=== PATIENT | female | born 1975 | race Caucasian/White ===

== ENCOUNTER 2018-09-29 15:18 | Outpatient (CLI) | payer MEDICARE, MEDICAID ==
--- NOTE | 2018-09-29 16:48 | MRI ---
MR OF THE LEFT WRIST WITHOUT IV CONTRAST: 09/29/18 INDICATION; Left wrist pain for six months with history of carpal tunnel. COMPARISON: None. FINDINGS: The transverse carpal ligament remains intact. The median nerve is slightly prominent with increased T2 signal just proximal to the transverse carpal band suspicious for changes of carpal tunnel syndrom e. SCR and SCU tendons appear within normal limits. There is a small volar radial ganglion measuring 5 mm protruding from the radiocarpal joint. Scapholunate and lunatotriquetral ligaments are intact. T FC appears intact. There is some mild fluid seen within the first dorsal compartment. There is mild t endinosis of the ECU tendon. Remaining extensor tendons appear within normal limits. Small amount of fluid is also present within the second dorsal compartment. Bone marrow signal intensity appears with in normal limits. The patient holds the wrist in slight dorsiflexion slightly limiting the exam. Visu alized extrinsic ligaments appear intact. IMPRESSION: 1. Slight prominence of the median nerve with some increased T2 signal can be seen with carpal t unnel syndrome. The transverse carpal ligament remains intact. 2. Mild ECU tendinosis. 3. Mild amount of fluid within the second and first dorsal extensor compartment suspicious for m ild tenosynovitis. POS: CET
== END 2018-09-29 15:19 | disposition home or self-care (01) ==
LOC: BICMRI 15:18
PROVIDERS: ATTEND Orthopaedic Surgery Hand Surgery
DX: M87.00 Idiopathic aseptic necrosis of unspecified bone (principal); G56.02 Carpal tunnel syndrome, left upper limb; M77.9 Enthesopathy, unspecified

== ENCOUNTER 2018-10-30 00:09 | Outpatient (CLI) | payer MEDICARE, MEDICAID ==
[2018-10-30 09:01] LABS: BHCG - Serum Negative (NEGATIVE); Pregs Control Background? CLEAR/WHITE (CLR/WHITE); Pregs Control Bar Appear? YES (CONTROL BAR)
[2018-10-30 09:19] LABS: #Basophils 0.1 thou/uL (0.0-0.2); #Eosinphils 0.2 thou/uL (0.0-0.7); #Lymphocytes 3.7 thou/uL (1.20-3.40); #Monocytes 0.7 thou/uL (0.11-0.59); #Neutrophils 7.9 thou/uL (1.40-6.50); %Basophils 0.7 % (0.0-1.0); %Eosinophils 1.8 % (0.0-10.0); %Lymphocytes 29.5 % (21.0-51.0); %Monocytes 5.6 % (0.0-10.0); %Neutrophils 62.4 % (42.0-75.0); Hemoglobin 11.4 g/dL (12.0-16.0); Mean Corpuscular HGB CONC 31.1 g/dL (32.0-36.0); Mean Corpuscular Hemoglobin 27.4 pg (27.0-31.0); Mean Corpuscular Volume 87.9 fL (78.0-98.0); Mean Platelet Volume 6.1 fL (7.4-10.4); Platelet Count 460 thou/uL (130-400); RBC Distribution Width 13.5 % (11.5-14.5); Red Blood Cell (RBC) Count 4.17 mill/uL (4.20-5.40); White Blood Cell (WBC) Count 12.6 thou/uL (4.8-10.8)
== END 2018-10-30 00:10 | disposition home or self-care (01) ==
LOC: LABBT 00:09
PROVIDERS: ATTEND Orthopaedic Surgery Hand Surgery
DX: Z01.812 Encounter for preprocedural laboratory examination (principal); G56.02 Carpal tunnel syndrome, left upper limb
CPT/HCPCS: 84703; 85025; 85652

== ENCOUNTER 2018-10-31 05:43 | Day surgery (SDC) | payer MEDICARE, MEDICAID ==
[2018-10-30 08:19] VITALS: BMI 42.3
[2018-10-31] MEDS ORDERED: Fentanyl 100 MCG/2 ML VIAL ONE (06:31)
[2018-10-31] MEDS ORDERED: Midazolam HCl 2 mg/2 ml Vial ONE (06:31)
[2018-10-31] MEDS ORDERED: Bacitracin Zinc Ointment 30 gm TUBE ONE (06:49)
[2018-10-31] MEDS ORDERED: Bupivacaine PF 0.5% 30 ML VIAL ONE (06:49)
[2018-10-31] MEDS ORDERED: Betamet Acet/Betamet Na Ph 30 MG/5 ML VIAL ONE (06:49)
[2018-10-31] MEDS ORDERED: Albuterol Sulfate 2.5 mg/3 ml Neb ONE (09:15)
--- NOTE | 2018-10-31 11:16 | OP ---
DATE OF PROCEDURE: 10/31/2018 PREOPERATIVE DIAGNOSIS: Left carpal tunnel syndrome. POSTOPERATIVE DIAGNOSIS: Left carpal tunnel syndrome. FINDINGS: 1. Very tight transverse carpal ligament. 2. Slightly edema, but edematous and compressed separately motor branch without nerve tumor. PROCEDURES PERFORMED: 1. Carpal tunnel release. 2. Celestone injection drip technique. INDICATIONS: Failed conservative treatment, positive EMG on exam. ANESTHESIA: General LMA technique augmented by 15 mL of 0.5% Marcaine block. DESCRIPTION OF PROCEDURE: After successful general anesthesia as listed above, limb was prepped and draped. Time-out was done appropriately. Identified the site, side and the consent is matching. We exsanguinated the limb and elevated the tourniquet to 250 mmHg pressure. Outlined incision in line with the ring finger from medial lateral, as far distal as Roblero's cardinal line for approximately 5 mm distal to the volar wrist flexion crease. We carried this incision through skin and subcutaneous tissue with a 15 blade knife, then exchanged [place] blade to dissect subcutaneously, identified the transverse carpal ligament. We protected the nerve branches distal and proximal. We then found a tight transverse carpal ligament from the midportion distally released under direct visualization with a [place] blade and for the midportion proximal, released the transverse carpal ligament under direct visualization with combination of [place] blade and tenotomy scissors. There was a slightly edematous and thickened area around the motor branch, but there was no primary nerve tumor seen. We placed 3 mL Celestone drip technique over the median nerve in the area, where there was some small amount of stippling, but no hourglass formation as yet. We then released the tourniquet, obtained hemostasis, closed the incision with interrupted 4-0 nylon mattress pattern and placed the patient in a bulky dressing with no splint. She left the operating room without evidence of anesthetic or operative complication. Job ID: [id number]
[2018-10-31] MEDS ORDERED: PROPOFOL 200 MG/20 ML VIAL ONE (15:05)
[2018-10-31] MEDS ORDERED: Ondansetron PF 4 MG/2 ML Vial ONE (15:05)
[2018-10-31] MEDS ORDERED: Lidocaine 1% PF 5 ML VIAL ONE (15:05)
[2018-10-31] MEDS ORDERED: Metoclopramide HCl 10 MG/2 ML VIAL ONE (15:05)
== END 2018-10-31 09:38 | disposition home or self-care (01) ==
LOC: SDC 05:43
PROVIDERS: ATTEND Orthopaedic Surgery Hand Surgery
PROC: 01N50ZZ Release Median Nerve, Open Approach (ICD-10-PCS; principal; 2018-10-31)
DX: G56.03 Carpal tunnel syndrome, bilateral upper limbs (principal); F31.81 Bipolar II disorder; E11.9 Type 2 diabetes mellitus without complications; J45.909 Unspecified asthma, uncomplicated; G43.909 Migraine, unspecified, not intractable, without status migrainosus; M19.90 Unspecified osteoarthritis, unspecified site; Z85.41 Personal history of malignant neoplasm of cervix uteri; Z88.6 Allergy status to analgesic agent; Z88.5 Allergy status to narcotic agent; Z79.84 Long term (current) use of oral hypoglycemic drugs; Z79.51 Long term (current) use of inhaled steroids; Z79.899 Other long term (current) drug therapy; Z98.890 Other specified postprocedural states
CPT/HCPCS: J0702; J2001; J2250; J2405; J2704; J2765; J3010; J7611; S0020

== ENCOUNTER 2019-01-01 13:25 | Day surgery (SDC) | payer MEDICARE, MEDICAID ==
[2018-12-28 17:47] VITALS: BMI 40.7
[~2019-01-01 13:25] MED LIST: Lidocaine 1% PF 5 ML VIAL ONE; PROPOFOL 200 MG/20 ML VIAL ONE
[2019-01-01 14:30] LABS: #Basophils 0.1 thou/uL (0.0-0.2); #Eosinphils 0.2 thou/uL (0.0-0.7); #Monocytes 0.3 thou/uL (0.11-0.59); #Neutrophils 5.1 thou/uL (1.40-6.50); %Basophils 1.1 % (0.0-1.0); %Eosinophils 2.7 % (0.0-10.0); %Lymphocytes 25.6 % (21.0-51.0); %Monocytes 4.5 % (0.0-10.0); %Neutrophils 66.1 % (42.0-75.0); Mean Corpuscular HGB CONC 32.5 g/dL (32.0-36.0); Mean Corpuscular Hemoglobin 28.2 pg (27.0-31.0); Mean Platelet Volume 6.1 fL (7.4-10.4); Platelet Count 498 thou/uL (130-400); RBC Distribution Width 12.8 % (11.5-14.5); Red Blood Cell (RBC) Count 4.24 mill/uL (4.20-5.40); White Blood Cell (WBC) Count 7.7 thou/uL (4.8-10.8)
[2019-01-01] MEDS ORDERED: Betamet Acet/Betamet Na Ph 30 MG/5 ML VIAL ONE (14:35)
[2019-01-01] MEDS ORDERED: Bupivacaine PF 0.5% 30 ML VIAL ONE (14:35)
[2019-01-01] MEDS ORDERED: Fentanyl 100 MCG/2 ML VIAL ONE (15:25)
--- NOTE | 2019-01-02 08:57 | OP ---
DATE OF PROCEDURE: 01/01/2019 PREOPERATIVE DIAGNOSIS: Right hand carpal tunnel syndrome. POSTOPERATIVE DIAGNOSIS: Right thumb carpal tunnel syndrome. FINDINGS: Very tight median nerve in the center of the transverse carpal ligament with about 1 cm area stippling, but no true hourglass formation. PROCEDURE PERFORMED: Right carpal tunnel release/median nerve neuroplasty at the wrist. TOURNIQUET TIME: 60 minutes. INJECTABLE: Yes. We injected 3 mL of Celestone steroid, a carpal tunnel injection via drip technique. INDICATIONS FOR PROCEDURE: The patient had failed conservative treatment one, brace, taken medication, had positive exam including [place] and positive EMG nerve conduction velocities. DESCRIPTION OF PROCEDURE: After successful general LMA technique, the limb was prepped and draped. Time-out was done appropriately. We injected the area over the carpal tunnel incision with 8 mL of 0.5% Marcaine with no epinephrine. We then outlined incision in line with the ring finger in the middle of the area between the two emesis, thenar and hypothenar, and extending from [place]o cardinal line to 0.5 mm distal to the volar wrist flexion crease. We then exsanguinated the limb, inflated the tourniquet to 250 mmHg pressure. . We then entered the incision through the glabrous skin, dissected subcutaneous tissue. We visualized the palmaris longus insertion on the transverse carpal ligament. We then made incision in the ulnar 2/3 of the palmaris longus, carried through the ligament complete to visualize the underlying neurovascular structures. We protected the median nerve and then from the midportion of transcarpal ligament distally first we opened it and with combination of [place] blade and tenotomy scissors. Here, we saw the stippling without allograft formation. We then elevated the skin flaps, dissected to visualize the entire transcarpal ligament proximally and released it under direct visualization using the tenotomy scissors and [place] blade. We then placed 3 mL Celestone along the nerve in area with stippling, deflated the tourniquet, and closed the wound with interrupted 4-0 nylon mattress pattern. The patient left the operating room without evidence of anesthetic or operative complication with a soft dressing. Job ID: [id number]
== END 2019-01-01 17:10 | disposition home or self-care (01) ==
LOC: SDC 13:25
PROVIDERS: ATTEND Orthopaedic Surgery Hand Surgery
PROC: 01N50ZZ Release Median Nerve, Open Approach (ICD-10-PCS; principal; 2019-01-01)
DX: G56.03 Carpal tunnel syndrome, bilateral upper limbs (principal); J44.9 Chronic obstructive pulmonary disease, unspecified; K21.9 Gastro-esophageal reflux disease without esophagitis; F31.9 Bipolar disorder, unspecified; G43.909 Migraine, unspecified, not intractable, without status migrainosus; Z79.51 Long term (current) use of inhaled steroids; Z79.84 Long term (current) use of oral hypoglycemic drugs; Z79.899 Other long term (current) drug therapy; Z88.5 Allergy status to narcotic agent; Z88.6 Allergy status to analgesic agent; Z88.8 Allergy status to other drugs, medicaments and biological substances
CPT/HCPCS: 36415; 85025; J0690; J0702; J2001; J2704; J3010; S0020

== ENCOUNTER 2021-10-16 13:59 | Outpatient (CLI) | payer MEDICARE, MEDICAID ==
[2021-10-16 15:44] LABS: Hemoglobin 7.6 g/dL (12.0-15.5); Mean Corpuscular HGB CONC 29.5 g/dL (32.0-36.0); Mean Corpuscular Hemoglobin 24.9 pg (27.0-33.0); Mean Corpuscular Volume 84.6 fl (81.6-98.3); Mean Platelet Volume 9.1 fl (7.4-10.4); Platelet Count 605 10x3/uL (150-450); Red Blood Cell (RBC) Count 3.05 10x6/uL (3.90-5.03); White Blood Cell (WBC) Count 11.6 10x3/uL (3.5-10.5)
[2021-10-16 15:59] LABS: Anion Gap 16 mmol/L (10-20); BUN (Urea Nitrogen) 13 mg/dL (7.0-18.7); Calc. Creatinine Clearance 0 mL/min (70-130); Calcium 9.1 mg/dL (7.8-10.44); Carbon Dioxide 16 mmol/L (22-29); Chloride 108 mmol/L (98-107); Glucose 128 mg/dL (70-105); Potassium 4.3 mmol/L (3.5-5.1); Sodium 136 mmol/L (136-145)
[2021-10-17 00:42] LABS: SARS-CoV-2 PCR by NAA Not Detected (NotDetected)
== END 2021-10-16 14:00 | disposition home or self-care (01) ==
LOC: LABBT 13:59
PROVIDERS: ATTEND Neurological Surgery
DX: Z01.818 Encounter for other preprocedural examination (principal); M43.16 Spondylolisthesis, lumbar region; Z20.822 Contact with and (suspected) exposure to COVID-19
CPT/HCPCS: 80048; 85027; 93005; U0003; U0005; 93010

== ENCOUNTER 2021-10-30 08:58 | Outpatient (CLI) | payer MEDICARE, MEDICAID ==
[2021-10-30 10:01] LABS: Hemoglobin 11.2 g/dL (12.0-15.5); Mean Corpuscular HGB CONC 30.2 g/dL (32.0-36.0); Mean Corpuscular Hemoglobin 24.9 pg (27.0-33.0); Mean Corpuscular Volume 82.4 fl (81.6-98.3); Mean Platelet Volume 8.8 fl (7.4-10.4); Platelet Count 486 10x3/uL (150-450); RBC Distribution Width 15.1 % (11.5-14.5); White Blood Cell (WBC) Count 7.7 10x3/uL (3.5-10.5)
[2021-10-30 10:58] LABS: Anion Gap 12 mmol/L (10-20); BUN (Urea Nitrogen) 11 mg/dL (7.0-18.7); Calc. Creatinine Clearance 0 mL/min (70-130); Calcium 9.5 mg/dL (7.8-10.44); Carbon Dioxide 23 mmol/L (22-29); Chloride 104 mmol/L (98-107); Glucose 115 mg/dL (70-105); Potassium 4.3 mmol/L (3.5-5.1); Sodium 135 mmol/L (136-145)
[2021-10-30 18:26] LABS: SARS-CoV-2 PCR by NAA Not Detected (NotDetected)
== END 2021-10-30 08:59 | disposition home or self-care (01) ==
LOC: LABBT 08:58
PROVIDERS: ATTEND Neurological Surgery
DX: Z01.818 Encounter for other preprocedural examination (principal); M43.16 Spondylolisthesis, lumbar region; Z20.822 Contact with and (suspected) exposure to COVID-19
CPT/HCPCS: 80048; 85027; 93005; U0003; U0005; 93010

== ENCOUNTER 2021-11-04 05:40 | Day surgery (SDC) | payer MEDICARE, MEDICAID ==
[2021-10-12 13:15] VITALS: BMI 42.1
[2021-11-04] MEDS ORDERED: Midazolam HCl 2 mg/2 ml Vial ONE (06:30)
[2021-11-04] MEDS ORDERED: Fentanyl 250 MCG/5 ML VIAL ONE ×2 (06:40→08:47)
[2021-11-04] MEDS ORDERED: Ondansetron PF 4 MG/2 ML Vial ONE ×2 (07:22→11:03)
[2021-11-04] MEDS ORDERED: Rocuronium Bromide 10 MG/ML (10ML VIAL) ONE (07:22)
[2021-11-04] MEDS ORDERED: ePHEDrine 50 MG/ML VIAL ONE ×2 (07:22)
[2021-11-04] MEDS ORDERED: Lidocaine 1% PF 5 ML VIAL ONE (07:22)
[2021-11-04] MEDS ORDERED: GLYCOPYRROLATE/PF 0.2 MG/ML VIAL ONE (07:22)
[2021-11-04] MEDS ORDERED: Dexamethasone 20 MG/5 ML VIAL ONE (07:22)
[2021-11-04] MEDS ORDERED: PROPOFOL 200 MG/20 ML VIAL ONE (07:22)
[2021-11-04] MEDS ORDERED: HYDROmorphone 0.5 MG/0.5 ML SYRINGE ONE ×2 (09:17→09:54)
[2021-11-04] MEDS ORDERED: traMADol HCl 50 MG TAB ONE (10:57)
== END 2021-11-04 12:17 | disposition home or self-care (01) ==
LOC: SDC 05:40
PROVIDERS: ATTEND Neurological Surgery
PROC: 0SG0071 Fusion of Lumbar Vertebral Joint with Autologous Tissue Substitute, Posterior Approach, Posterior Column, Open Approach (ICD-10-PCS; principal; 2021-11-04)
DX: M43.16 Spondylolisthesis, lumbar region (principal); M48.062 Spinal stenosis, lumbar region with neurogenic claudication; E66.01 Morbid (severe) obesity due to excess calories; Z68.41 Body mass index [BMI] 40.0-44.9, adult; Z79.84 Long term (current) use of oral hypoglycemic drugs; Z79.899 Other long term (current) drug therapy; Z88.5 Allergy status to narcotic agent; Z88.6 Allergy status to analgesic agent
CPT/HCPCS: 76000; C1713; C1768; J1100; J1170; J2250; J2405; J2704; J3010; J3370; J3490; J7620

== ENCOUNTER 2023-06-16 09:52 | Outpatient (CLI) | payer MEDICARE, MEDICAID | END 2023-06-16 09:53 | disposition home or self-care (01) | LOC: SJX 09:52 | PROVIDERS: ATTEND Specialist | DX: M54.16 Radiculopathy, lumbar region (principal); M48.061 Spinal stenosis, lumbar region without neurogenic claudication; M48.07 Spinal stenosis, lumbosacral region; Z98.890 Other specified postprocedural states | CPT/HCPCS: 72158 ==

== ENCOUNTER 2024-07-31 13:28 | Outpatient (CLI) | payer MEDICARE, MEDICAID | END 2024-07-31 13:29 | disposition home or self-care (01) | LOC: MRI 13:28 | PROVIDERS: ATTEND Specialist | DX: M47.26 Other spondylosis with radiculopathy, lumbar region (principal); M48.061 Spinal stenosis, lumbar region without neurogenic claudication; N28.9 Disorder of kidney and ureter, unspecified; Z98.890 Other specified postprocedural states | CPT/HCPCS: 72148 ==

== ENCOUNTER 2024-10-17 13:03 | Outpatient (CLI) | payer MEDICARE, MEDICAID | END 2024-10-17 13:04 | disposition home or self-care (01) | LOC: RAD 13:03 | PROVIDERS: ATTEND Internal Medicine | DX: R06.00 Dyspnea, unspecified (principal); J45.50 Severe persistent asthma, uncomplicated | CPT/HCPCS: 36415; 71046; 80048; 82785; 85025; 86606 ==